=== PATIENT | male | born 1960 | race Two or more races ===

== ENCOUNTER 2021-05-09 18:18 | Emergency (ER) | payer MEDICAID, OTHER ==
[~2021-05-09] VITALS: Ht 167.6 cm; Wt 68.0 kg
[2021-05-09] MEDS ORDERED: KETOROLAC TROMETH 60MG/2ML VIAL IM ONE (19:15)
[2021-05-09 20:09] VITALS: BP 125/76
== END 2021-05-09 20:14 | disposition home or self-care (01) ==
LOC: EDBD 18:22 → ER 18:22
DX: M79.18 Myalgia, other site (principal); M25.552 Pain in left hip; M25.512 Pain in left shoulder; V43.52XA Car driver injured in collision with other type car in traffic accident, initial encounter; Y93.89 Activity, other specified; Y92.488 Other paved roadways as the place of occurrence of the external cause; Y99.8 Other external cause status
CPT/HCPCS: 96372; 99283; J1885

== ENCOUNTER 2021-05-17 11:26 | Emergency (ER) | payer MEDICAID, OTHER ==
[~2021-05-17] VITALS: Ht 162.6 cm; Wt 68.0 kg
[2021-05-17 12:57] VITALS: BP 134/71
[2021-05-17] MEDS ORDERED: IBUP800T27 PO (14:25)
[2021-05-17] MEDS ORDERED: CYCL-837 PO (14:25)
[2021-05-17] MEDS ORDERED: KETOROLAC TROMETH 60MG/2ML VIAL IM ONE (14:30)
== END 2021-05-17 14:55 | disposition home or self-care (01) ==
LOC: ER 11:26
DX: S46.912A Strain of unspecified muscle, fascia and tendon at shoulder and upper arm level, left arm, initial encounter (principal); Z79.1 Long term (current) use of non-steroidal anti-inflammatories (NSAID); Z79.899 Other long term (current) drug therapy; V89.2XXA Person injured in unspecified motor-vehicle accident, traffic, initial encounter; Y93.89 Activity, other specified; Y92.89 Other specified places as the place of occurrence of the external cause; Y99.8 Other external cause status
CPT/HCPCS: 96372; 99283; J1885

== ENCOUNTER 2024-12-28 17:52 | Emergency (ER) | payer OTHER, MEDICAID ==
[~2024-12-28] VITALS: Ht 162.6 cm; Wt 78.6 kg
[~2024-12-28 17:52] MED LIST: CYCL-837 PO; IBUP-1456 PO
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
[2024-12-28 20:00] VITALS: BP 160/92; PULSE 80; TEMP 98.9
[2024-12-28] MEDS: HYDROcodone-ACET 10/325MG TAB PO ONE (20:03)
[2024-12-28 20:06] VITALS: RESP 18; O2SAT 98
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
[2024-12-28] MEDS ORDERED: HYDR-4902 PO (20:31)
== END 2024-12-28 20:55 | disposition home or self-care (01) ==
LOC: ER 17:52
DX: M79.18 Myalgia, other site (principal); I10 Essential (primary) hypertension; Z98.890 Other specified postprocedural states; V49.40XA Driver injured in collision with unspecified motor vehicles in traffic accident, initial encounter; Y93.89 Activity, other specified; Y92.410 Unspecified street and highway as the place of occurrence of the external cause; Y99.8 Other external cause status
CPT/HCPCS: 71046; 72170